=== PATIENT | male | born 1980 | race Caucasian/White ===

== ENCOUNTER 2021-07-21 13:33 | Inpatient (IN) | payer OTHER ==
[2021-07-21] MEDS ORDERED: DICYCLOMINE HCL 10 MG CAPSULE PO PRN (14:15)
[2021-07-21] MEDS ORDERED: MAG HYDROX/AL HYDROX/SIMETH 30 ML UNIT-DOSE CUP PO PRN (14:15)
[2021-07-21] MEDS ORDERED: BISMUTH SUBSALICYLATE 524 MG/30 ML PO PRN (14:15)
[2021-07-21] MEDS ORDERED: ONDANSETRON *ODT* 4 MG TABLET SL PRN (14:15)
[2021-07-21] MEDS ORDERED: ACETAMINOPHEN 325 MG TABLET (FP) PO PRN ×2 (14:15)
[2021-07-21] MEDS ORDERED: chlordiazePOXIDE HCL 25 MG CAPSULE PO PRN (14:15)
[2021-07-21] MEDS ORDERED: LOPERAMIDE HCL 2 MG CAPSULE PO PRN (14:15)
[2021-07-21] MEDS ORDERED: MAGNESIUM CITRATE 300 ML BOTTLE PO PRN (14:15)
[2021-07-21] MEDS ORDERED: BENZOCAINE/MENTHOL (CHLORASEPTIC ) LOZENGE MM PRN (14:15)
[2021-07-21] MEDS ORDERED: MAGNESIUM HYDROX 2400MG/30ML ORAL SUSPENSION 30 ML CUP PO PRN (14:15)
[2021-07-21 15:31] VITALS: BMI 25.7
[2021-07-21] MEDS: hydrOXYzine PAMOATE 25 MG CAPSULE (FP) PO SCH ×2 (18:28→22:23)
[2021-07-21] MEDS: chlordiazePOXIDE HCL 25 MG CAPSULE PO SCH ×2 (18:28→22:23)
[2021-07-21] MEDS: PRENATAL VITAMINS W/ FOLIC ACID TABLET (FP) PO SCH (18:28)
[2021-07-21] MEDS: THIAMINE HCL 100 MG TABLET (FP) PO SCH (22:22)
[2021-07-21] MEDS: MELATONIN 5 MG TABLETS PO SCH (22:22)
[2021-07-22] MEDS: hydrOXYzine PAMOATE 25 MG CAPSULE (FP) PO SCH ×5 (05:40→22:51)
[2021-07-22] MEDS: chlordiazePOXIDE HCL 25 MG CAPSULE PO SCH ×2 (05:40→10:15)
[2021-07-22] MEDS ORDERED: METOPROLOL TARTRATE 50 MG TABLET (FP) PO SCH (10:00)
[2021-07-22] MEDS: PRENATAL VITAMINS W/ FOLIC ACID TABLET (FP) PO SCH (10:15)
[2021-07-22 10:46] LABS: BLOOD UREA NITROGEN 8.5 mg/dL (7-18); CALCIUM 8.1 mg/dL (8.5-10.1)
[2021-07-22 10:47] LABS: ALBUMIN 2.2 g/dl (3.4-5.0)
[2021-07-22 10:50] LABS: CREATININE 0.9 mg/dL (0.55-1.3)
[2021-07-22 10:52] LABS: BILIRUBIN,TOTAL 2.8 mg/dL (0.2-1); TOT PROT 7.7 g/dl (6.4-8.2)
[2021-07-22 10:56] LABS: HEMATOCRIT 29.9 % (35.4-49); HEMOGLOBIN 10.3 GM/dL (11.7-16.9); MCHC 34.4 g/dl (32.0-35.9); MEAN PLT VOLUME 9.7 fl (7.5-11.1); PLATELET COUNT 50 10^3/uL (134-434); RBC 3.21 M/mm3 (4.00-5.60); RDW 18.6 % (11.9-15.9); WHITE BLOOD COUNT 5.1 K/mm3 (4.0-10.0)
[2021-07-22] MEDS ORDERED: LORazepam 1 MG TABLET PO PRN (10:59)
[2021-07-22] MEDS: METHOCARBAMOL 500 MG TABLET PO PRN (18:05)
[2021-07-22] MEDS: LORazepam 2 MG TABLET PO SCH ×2 (18:05→23:32)
[2021-07-22] MEDS: MELATONIN 5 MG TABLETS PO SCH (22:51)
[2021-07-22] MEDS: THIAMINE HCL 100 MG TABLET (FP) PO SCH (22:52)
[2021-07-22] MEDS: IBUPROFEN 400 MG TABLET (FP) PO PRN (22:54)
[2021-07-23] MEDS ORDERED: chlordiazePOXIDE HCL 25 MG CAPSULE PO SCH (05:00)
[2021-07-23] MEDS: LORazepam 2 MG TABLET PO SCH ×4 (05:32→22:28)
[2021-07-23] MEDS: hydrOXYzine PAMOATE 25 MG CAPSULE (FP) PO SCH ×5 (05:32→22:28)
[2021-07-23] MEDS ORDERED: METOPROLOL TARTRATE 50 MG TABLET (FP) PO SCH (10:00)
[2021-07-23 10:08] LABS: BILIRUBIN,DIRECT 1.8 mg/dL (0.0-0.2)
[2021-07-23 10:10] LABS: BILIRUBIN,TOTAL 2.7 mg/dL (0.2-1)
[2021-07-23 10:11] LABS: TOT PROT 7.2 g/dl (6.4-8.2)
[2021-07-23] MEDS: PRENATAL VITAMINS W/ FOLIC ACID TABLET (FP) PO SCH (11:11)
[2021-07-23] MEDS: METHOCARBAMOL 500 MG TABLET PO PRN ×2 (11:11→17:32)
[2021-07-23] MEDS: METOPROLOL TARTRATE 50 MG TABLET (FP) PO SCH (22:28)
[2021-07-23] MEDS: THIAMINE HCL 100 MG TABLET (FP) PO SCH (22:28)
[2021-07-23] MEDS: MELATONIN 5 MG TABLETS PO SCH (22:28)
[2021-07-24] MEDS ORDERED: chlordiazePOXIDE HCL 10 MG CAPSULE PO PRN
[2021-07-24] MEDS ORDERED: chlordiazePOXIDE HCL 10 MG CAPSULE PO SCH (05:00)
[2021-07-24] MEDS: hydrOXYzine PAMOATE 25 MG CAPSULE (FP) PO SCH ×5 (06:45→22:45)
[2021-07-24] MEDS: LORazepam 1 MG TABLET PO SCH ×4 (06:45→22:45)
[2021-07-24] MEDS: METOPROLOL TARTRATE 50 MG TABLET (FP) PO SCH ×2 (10:25→22:45)
[2021-07-24] MEDS: PRENATAL VITAMINS W/ FOLIC ACID TABLET (FP) PO SCH (10:27)
[2021-07-24] MEDS: IBUPROFEN 400 MG TABLET (FP) PO PRN (18:58)
[2021-07-24] MEDS: METHOCARBAMOL 500 MG TABLET PO PRN (18:59)
[2021-07-24] MEDS: THIAMINE HCL 100 MG TABLET (FP) PO SCH (22:45)
[2021-07-24] MEDS: MELATONIN 5 MG TABLETS PO SCH (22:45)
[2021-07-25] MEDS ORDERED: LORazepam 0.5 MG TABLET PO PRN
[2021-07-25] MEDS ORDERED: chlordiazePOXIDE HCL 10 MG CAPSULE PO SCH (05:00)
[2021-07-25] MEDS: LORazepam 0.5 MG TABLET PO SCH ×4 (06:14→22:12)
[2021-07-25] MEDS: hydrOXYzine PAMOATE 25 MG CAPSULE (FP) PO SCH ×5 (06:14→22:11)
[2021-07-25] MEDS: METHOCARBAMOL 500 MG TABLET PO PRN (11:14)
[2021-07-25] MEDS: FERROUS SO4 325 MG TABLET (FP) PO SCH (11:14)
[2021-07-25] MEDS: METOPROLOL TARTRATE 50 MG TABLET (FP) PO SCH ×2 (11:14→22:12)
[2021-07-25] MEDS: PRENATAL VITAMINS W/ FOLIC ACID TABLET (FP) PO SCH (11:14)
[2021-07-25] MEDS: IBUPROFEN 400 MG TABLET (FP) PO PRN (11:16)
[2021-07-25] MEDS: THIAMINE HCL 100 MG TABLET (FP) PO SCH (22:11)
[2021-07-25] MEDS: MELATONIN 5 MG TABLETS PO SCH (22:12)
[2021-07-26] MEDS ORDERED: chlordiazePOXIDE HCL 10 MG CAPSULE PO ONE (05:00)
[2021-07-26] MEDS ORDERED: LORazepam 0.5 MG TABLET PO ONE (05:00)
[2021-07-26] MEDS: hydrOXYzine PAMOATE 25 MG CAPSULE (FP) PO SCH ×2 (05:39→10:42)
[2021-07-26 09:52] VITALS: BP 135/91; PULSE 83; TEMP 97.8
[2021-07-26] MEDS: PRENATAL VITAMINS W/ FOLIC ACID TABLET (FP) PO SCH (10:42)
[2021-07-26] MEDS: METHOCARBAMOL 500 MG TABLET PO PRN (10:42)
[2021-07-26] MEDS: FERROUS SO4 325 MG TABLET (FP) PO SCH (10:42)
[2021-07-26] MEDS: METOPROLOL TARTRATE 50 MG TABLET (FP) PO SCH (10:42)
[2021-07-26] MEDS: IBUPROFEN 400 MG TABLET (FP) PO PRN (10:45)
[2021-07-26 14:09] LABS: BLOOD UREA NITROGEN 9.1 mg/dL (7-18); CALCIUM 8.8 mg/dL (8.5-10.1)
[2021-07-26 14:14] LABS: BILIRUBIN,TOTAL 2.6 mg/dL (0.2-1); TOT PROT 8.4 g/dl (6.4-8.2)
[2021-07-26 14:18] LABS: ALBUMIN 2.4 g/dl (3.4-5.0)
== END 2021-07-26 12:55 | disposition other institution (70) | DRG 775 ==
LOC: YASAS 13:33 → Y6N 17:23
PROVIDERS: ADMIT Allergy & Immunology; ATTEND Allergy & Immunology
PROC: HZ2ZZZZ Detoxification Services for Substance Abuse Treatment (ICD-10-PCS; principal; 2021-07-21)
DX: F10.230 Alcohol dependence with withdrawal, uncomplicated (principal); I10 Essential (primary) hypertension; R74.01 Elevation of levels of liver transaminase levels; R74.8 Abnormal levels of other serum enzymes; Z87.891 Personal history of nicotine dependence; Z59.00 Homelessness unspecified
CPT/HCPCS: 36415; 80053; 80076; 82962; 85027; 86780; 93005; 93010; C9803-CS; U0003; U0005